=== PATIENT | male | born 1945 | race Caucasian/White ===

== ENCOUNTER 2023-07-19 12:01 | Emergency (ER) | payer MEDICARE ==
[~2023-07-19] VITALS: Ht 182.9 cm; Wt 72.6 kg
[~2023-07-19 12:01] MED LIST: ASPI81EC PO; LOSA25 PO; LOSHYD100 PO; OXYACE5T PO; PRED20 PO; [UNRECOGNIZED DRUG - REMARK]; [UNRECOGNIZED DRUG - REMARK]
[2023-07-19 12:39] LABS: BASOPHILS ABSOLUTE AUTO 0.04 K/mm3 (0.00-0.23); BASOPHILS PERCENT AUTO 0 % (0-2); EOSINOPHILS ABSOLUTE AUTO 0.04 K/mm3 (0.00-0.68); EOSINOPHILS PERCENT AUTO 0 % (0-6); Hematocrit 42.3 % (37.0-53.0); Hemoglobin 14.7 g/dL (13.5-17.5); IMMATURE GRAN ABSOLUTE AUTO 0.03 K/mm3 (0.00-0.10); IMMATURE GRAN PERCENT AUTO 0 % (0-1); LYMPHOCYTES ABSOLUTE AUTO 1.18 K/mm3 (0.84-5.20); LYMPHOCYTES PERCENT AUTO 11 % (21-46); MONOCYTES ABSOLUTE AUTO 0.95 K/mm3 (0.16-1.47); MONOCYTES PERCENT AUTO 9 % (4-13); Mean Corpuscular HGB 31.8 pg (26.0-34.0); Mean Corpuscular HGB Conc 34.8 g/dL (31.5-36.5); Mean Corpuscular Volume 92 fL (80-100); Mean Platelet Volume 10.1 fL (9.1-12.4); NEUTROPHILS ABSOLUTE AUTO 8.17 K/mm3 (1.96-9.15); NEUTROPHILS PERCENT AUTO 79 % (41-73); Platelet Count 241 K/mm3 (150-400); RDW Coefficient Variation 13.1 % (11.7-14.2); RDW Standard Deviation 44.3 fL (35.1-46.3); Red Blood Cell Count 4.62 M/mm3 (4.30-5.90); White Blood Cell Count 10.41 K/mm3 (4.00-11.30)
[2023-07-19 13:09] LABS: Albumin, Blood 3.7 g/dL (3.4-5.0); Albumin/Globulin Ratio 0.8 (0.8-1.8); Bun/Creatinine Ratio 23.4 (12.0-20.0); Calcium, Blood 9.3 mg/dL (8.5-10.1); Creatinine, Blood 1.28 mg/dL (0.60-1.20); Globulin, Blood 4.6 g/dL (2.2-4.0); Potassium, Blood 3.9 mmol/L (3.5-5.5); Total Protein, Blood 8.3 g/dL (6.4-8.2)
[2023-07-19] MEDS ORDERED: LOSARTAN-HCTZ1 EAC5 PO (13:54)
[2023-07-19] MEDS ORDERED: AMLODIPINE BESYL5 MG PO (13:54)
[2023-07-19] MEDS ORDERED: REMERON1510 PO (13:55)
[2023-07-19] MEDS ORDERED: ZOLOFT25 MG PO (13:55)
[2023-07-19] MEDS ORDERED: TAMSULOSIN HCL0.4 M1 PO (13:55)
[2023-07-19] MEDS ORDERED: METO50ER PO (13:55)
[2023-07-19] MEDS ORDERED: Ondansetron HCl 2 MG / ML 2ML Vial IV ONE (14:20)
[2023-07-19] MEDS ORDERED: HYDROmorphone HCl/Pf 1MG SYR IV ONE (14:20)
[2023-07-19] MEDS ORDERED: NS 1,000 ML IV SCH (14:20)
[2023-07-19 15:43] LABS: Source, Urine Foley catheter
[2023-07-19 15:54] LABS: Appearance, Urine Clear (Clear); Bilirubin, Urine Neg (Neg); Blood, Urine 3+ (Neg); Color, Urine Yellow (P-Yellow); Glucose Qualitative, Urine Neg (Neg); Ketones, Urine 2+ (Neg); Leukocyte Esterase, Urine Neg (Neg); Nitrite, Urine Neg (Neg); Protein, Urine 1+ (Neg); Specific Gravity, Urine 1.015 (1.003-1.022); Urobilinogen, Urine NORM (Normal)
[2023-07-19 16:33] LABS: Hyaline Casts 0-2 /lpf (0-2)
[2023-07-19 16:34] LABS: Bacteria Few /hpf; Squamous Epithelial Cells Rare /hpf (Few); White Blood Cells, Urine 0-2 /hpf (0-5)
[2023-07-19] MEDS ORDERED: OxyCODONE 5 mg/Acetamin 325 mg TABLET PO ONE (16:50)
[2023-07-19 17:50] VITALS: BP 153/68
[2023-07-19] MEDS ORDERED: RX Prepack 6 Tabs Oxycodone 5mg UD ONE (17:55)
[2023-07-19] MEDS ORDERED: BISA5EC PO (18:00)
[2023-07-19] MEDS ORDERED: OXYC5 PO (18:00)
== END 2023-07-19 18:10 | disposition home or self-care (01) ==
LOC: ER 12:01
PROVIDERS: Emergency Medicine; Student in an Organized Health Care Education/Training Program
DX: L98.9 Disorder of the skin and subcutaneous tissue, unspecified (principal); R33.9 Retention of urine, unspecified; K59.00 Constipation, unspecified; Z88.0 Allergy status to penicillin; Z88.2 Allergy status to sulfonamides; F17.200 Nicotine dependence, unspecified, uncomplicated
CPT/HCPCS: 51702; 51798; 74175; 74177; 80053; 81001; 83690; 85025; 93005; 93010; 93922; 96361-59; 96374-59; 96375-59; 99284-25; A9270; J1170; J2405; J7030; Q9967

== ENCOUNTER 2023-07-20 21:21 | Emergency (ER) | payer MEDICARE ==
[~2023-07-20] VITALS: Ht 182.9 cm; Wt 72.6 kg
[~2023-07-20 21:21] MED LIST changes: +AMLODIPINE BESYL5 MG PO; +BISA5EC PO; +LOSARTAN-HCTZ1 EAC5 PO; +METO50ER PO; +OXYC5 PO; +REMERON1510 PO; +TAMSULOSIN HCL0.4 M1 PO; +ZOLOFT25 MG PO
[2023-07-20 22:28] LABS: BASOPHILS ABSOLUTE AUTO 0.02 K/mm3 (0.00-0.23); BASOPHILS PERCENT AUTO 0 % (0-2); EOSINOPHILS PERCENT AUTO 0 % (0-6); Hematocrit 30.9 % (37.0-53.0); Hemoglobin 10.8 g/dL (13.5-17.5); IMMATURE GRAN ABSOLUTE AUTO 0.11 K/mm3 (0.00-0.10); IMMATURE GRAN PERCENT AUTO 1 % (0-1); LYMPHOCYTES ABSOLUTE AUTO 0.69 K/mm3 (0.84-5.20); LYMPHOCYTES PERCENT AUTO 5 % (21-46); MONOCYTES ABSOLUTE AUTO 1.17 K/mm3 (0.16-1.47); MONOCYTES PERCENT AUTO 8 % (4-13); Mean Corpuscular HGB 31.4 pg (26.0-34.0); Mean Corpuscular Volume 90 fL (80-100); Mean Platelet Volume 10.1 fL (9.1-12.4); NEUTROPHILS ABSOLUTE AUTO 12.44 K/mm3 (1.96-9.15); NEUTROPHILS PERCENT AUTO 86 % (41-73); Platelet Count 181 K/mm3 (150-400); RDW Coefficient Variation 13.2 % (11.7-14.2); RDW Standard Deviation 43.2 fL (35.1-46.3); Red Blood Cell Count 3.44 M/mm3 (4.30-5.90); White Blood Cell Count 14.43 K/mm3 (4.00-11.30)
[2023-07-20] MEDS ORDERED: CefTRIAXone Sodium 1,000 MG in NS 50 ML IV ONE (22:55)
[2023-07-20] MEDS ORDERED: Vancomycin HCL 1,500 MG in NS 250 ML IV ONE (23:05)
[2023-07-20 23:08] LABS: Albumin, Blood 2.7 g/dL (3.4-5.0); Albumin/Globulin Ratio 0.8 (0.8-1.8); Bun/Creatinine Ratio 15.3 (12.0-20.0); Calcium, Blood 8.1 mg/dL (8.5-10.1); Creatinine, Blood 2.02 mg/dL (0.60-1.20); Globulin, Blood 3.4 g/dL (2.2-4.0); Potassium, Blood 3.5 mmol/L (3.5-5.5)
[2023-07-20 23:14] LABS: Total Protein, Blood 6.1 g/dL (6.4-8.2)
[2023-07-21] MEDS ORDERED: Acetaminophen 500 MG Tab PO ONE (00:20)
[2023-07-21] MEDS ORDERED: CefTRIAXone 1000 MG Vial ONE (02:36)
[2023-07-21] MEDS ORDERED: NS 100 ML IV ONE (02:37)
[2023-07-21 04:28] LABS: Influenza A, PCR NEGATIVE (NEGATIVE); Influenza B, PCR NEGATIVE (NEGATIVE); Resp Syncytial Virus, PCR NEGATIVE (NEGATIVE); SARS-Cov-2 (COVID-19) PCR, MMC NEGATIVE (NEGATIVE)
[2023-07-21] MEDS ORDERED: NiCARdipine HCL 25 MG in NS 250 ML IV SCH (04:55)
[2023-07-21 05:30] LABS: Hematocrit 28.8 % (37.0-53.0); Hemoglobin 10.2 g/dL (13.5-17.5)
[2023-07-21 06:10] VITALS: BP 81/56
[2023-07-21 06:14] LABS: Magnesium, Blood 1.6 mg/dL (1.6-2.4); Phosphorus, Blood 2.5 mg/dL (2.5-4.9); Uric Acid, Blood 6.7 mg/dL (3.5-7.2)
[2023-07-21 08:00] LABS: Source, Urine Clean Catch
[2023-07-21 08:03] LABS: Appearance, Urine Hazy (Clear); Color, Urine Yellow (P-Yellow); Leukocyte Esterase, Urine 2+ (Neg); Nitrite, Urine Neg (Neg); Specific Gravity, Urine 1.005 (1.003-1.022)
[2023-07-21 08:04] LABS: Bilirubin, Urine Neg (Neg); Blood, Urine 5+ (Neg); Glucose Qualitative, Urine Neg (Neg); Ketones, Urine Neg (Neg); Protein, Urine 3+ (Neg); Urobilinogen, Urine 1+ (Normal)
[2023-07-21 08:05] LABS: Amorphous Light (0-Heavy); Bacteria Few /hpf; Squamous Epithelial Cells Rare /hpf (Few)
[2023-07-21 08:18] LABS: Thyroid Stimulating Hormone 0.758 uIU/mL (0.360-4.800)
[2023-07-21 08:53] LABS: International Normalized Ratio 1.27; Prothrombin Time Results 13.2 Sec (9.7-11.5)
== END 2023-07-21 06:33 | disposition short-term general hospital (02) ==
LOC: ER 21:21
PROVIDERS: Emergency Medicine
DX: A41.9 Sepsis, unspecified organism (principal); R65.20 Severe sepsis without septic shock; I71.33 Infrarenal abdominal aortic aneurysm, ruptured; R41.82 Altered mental status, unspecified; Z88.0 Allergy status to penicillin; Z88.2 Allergy status to sulfonamides; Z79.899 Other long term (current) drug therapy; Z79.82 Long term (current) use of aspirin; I10 Essential (primary) hypertension
CPT/HCPCS: 0241U; 36415; 70450; 71045; 74174; 80053; 81001; 83605; 83690; 83735; 84100; 84443; 84484; 84550; 85014; 85018; 85025; 85610; 85730; 86850; 86900; 86901; 86920; 87040; 87086; 87147; 93005; 93010; 96365; 96366; 96368; 96375; 99291-25; A9270; J0696; J3370; J7050; Q9967